=== PATIENT | female | born 1990 | race Caucasian/White ===

== ENCOUNTER 2016-05-16 20:08 | Emergency (ER) | payer OTHER ==
[2016-05-16 20:15] VITALS: BP 128/89; PULSE 97; RESP 16; TEMP 98.4; O2SAT 96
[2016-05-16] MEDS ORDERED: HYDROCOD/APAP 5/325 PREPACK#6 BTL TAKEHOME ONE (20:35)
--- NOTE | 2016-05-16 20:35 | EDPHY ---
H & P Smoking Status: Never smoked Time Seen by Provider: 05/16/16 20:22 HPI/ROS: CHIEF COMPLAINT: left ankle pain HISTORY OF PRESENT ILLNESS: 25-year-old female complaining of acute left lateral ankle pain after she was wearing 4 inch high heels last evening and rolled her foot. Unable to bear weight today. No proximal distal pain or injury. Injury occurred last night. No paresthesia no sensory deficit. PHYSICAL EXAM (Prior to examination, patient consented to physical exam, hands were washed and my usual and customary physical exam procedures followed) 1) GENERAL: Well-developed, well-nourished, alert and oriented. Appears to be in no acute distress. 2) HEAD: Normocephalic 3) HEENT: Pupils equal, round, reactive to light bilaterally. 4) LUNGS: Breathing comfortably. 5) MUSCULOSKELETAL: Soft tissue swelling and ecchymotic discoloration lateral malleolus on the left ankle. Intact skin. proximal tibia and fibula nontender .5th MT nontender negative Shepard test, compartments soft 6) SKIN: ecchymotic discoloration just inferior to the left lateral malleolus 7) VASCULAR: DP,PT pulses and cap refill present and brisk DIFFERENTIAL DIAGNOSIS: in no particular order including but not limited to fracture, sprain, compartment syndrome Xray of the left ankle interpreted by myself: no definitive acute osseous abnormality Procedure: Crutches indications for crutch use discussed with patient. Patient fitted for crutches by ER staff. Observed ambulating with crutches. I think the patient has the capacity to safely use crutches. Usual and customary crutch walking precautions provided Procedure: Splint A Harpreet boot splint was applied by ER generator technician. After application of the splint I returned and re-examined the patient. The splint was adequately immobilizing the joint and distal to the splint the patient's circulation and sensation were intact. Patient shows no signs of compartment syndrome. Was given orthopedic precautions. (Brown Ashton) Constitutional: Initial Vital Signs Temperature (C) 36.9 C 05/16/16 20:09 Heart Rate 97 05/16/16 20:09 Respiratory Rate 16 05/16/16 20:09 Blood Pressure 128/89 H 05/16/16 20:09 O2 Sat (%) 96 05/16/16 20:09 O2 Delivery Mode Room Air Allergies/Adverse Reactions: almonds Allergy (Uncoded 05/16/16 20:15) Home Medications: Medication Instructions Recorded NK [No Known Home Meds] 05/16/16 MDM/Departure - MDM Medications Given: Discontinued Medications Hydrocodone Bitart/Acetaminophen ([place] 5/325mg Prepack#6) 1 btl TAKEHOME EDNOW ONE Stop: 05/16/16 20:36 Last Admin: 05/16/16 20:45 Dose: 1 btl ED Course/Re-evaluation: No evidence of compartment syndrome. She is neurovascular intact. Discussed limitations of x-ray and recommend follow up with Orthopedics and provided usual and customary orthopedic precautions and instructions. (Brown Ashton) I did not see this patient while she was in the emergency department. However her care was discussed with the PA while the patient was in the department. I agree with treatment plan and management (Pedro Bliss) - Depart Disposition: Home, Routine, Self-Care Clinical Impression: Left ankle sprain Condition: Good Instructions: Hydrocodone/Acetaminophen (By mouth), Ankle Sprain (ED) Additional Instructions: Return to the ER immediately if you experience discoloration, have worsening pain, numbness, tingling, or any other symptoms that concern you. If you received x-rays in the emergency department today, be advised, that ligamentous , tendon, muscular, and other non-bony injury cannot be fully ruled out. Try to keep your affected extremity elevated above the level of your chest, and keep cold packs on the affected area, for the next 48 hours. Referrals: Devin Lima MD [Medical Doctor] - 5-7 days, call for appt.
== END 2016-05-16 21:01 | disposition home or self-care (01) ==
DX: S93.402A Sprain of unspecified ligament of left ankle, initial encounter (principal); X58.XXXA Exposure to other specified factors, initial encounter; Y99.8 Other external cause status; Y93.89 Activity, other specified
CPT/HCPCS: L4386